=== PATIENT | female | born 1970 | race Caucasian/White ===

== ENCOUNTER 2021-08-01 09:33 | Day surgery (SDC) | payer OTHER ==
[~2021-08-01] VITALS: Ht 160 cm; Wt 87.1 kg
[2021-08-01] MEDS ORDERED: LIDOCAINE 2% 100 MG/5 ML UJET TP ONE (12:05)
[2021-08-01] MEDS ORDERED: fentaNYL citrate 0.05 MG/ML VIAL ONE (12:05)
[2021-08-01] MEDS ORDERED: fentaNYL citrate 0.05 MG/ML VIAL IVP ONE (14:55)
== END 2021-08-01 13:02 | disposition home or self-care (01) ==
LOC: MDS 09:33 → MMU 09:34 → MDS 13:02
PROVIDERS: ATTEND Internal Medicine Gastroenterology
DX: Z12.11 Encounter for screening for malignant neoplasm of colon (principal); Z80.0 Family history of malignant neoplasm of digestive organs; Z90.49 Acquired absence of other specified parts of digestive tract; Z20.822 Contact with and (suspected) exposure to COVID-19
CPT/HCPCS: 45378; 81025; 87426; J3010